=== PATIENT | male | born 1975 | race Caucasian/White ===

== ENCOUNTER 2019-07-07 07:47 | Day surgery (SDC) | payer OTHER ==
--- NOTE | 2019-06-30 11:03 | RAD REPORT ---
EXAM DESCRIPTION: RAD - Chest Pa And Lat (2 Views) - 06/30/2019 10:56 am CLINICAL HISTORY: preop Chest pain. COMPARISON: No comparisons FINDINGS: The lungs are clear. The heart is normal in size. No displaced fractures. IMPRESSION: No acute or concerning finding suspected.
[2019-06-30 11:11] LABS: Absolute Lymphocytes (CBC) 1.2 K/uL (0.7-4.9); Basophils % 2.7 % (0-1.3); Hematocrit 45.6 % (39.6-49.0); Lymphocytes % 17.1 % (15.3-44.8); MPV 9.1 fL (7.6-11.3); RBC Red Blood Cell Count 4.72 M/uL (4.33-5.43)
[2019-06-30 11:33] LABS: Potassium 4.8 mmol/L (3.5-5.1)
--- NOTE | 2019-06-30 12:42 | EKG ---
Test Date: 2019-06-30 Test Time: 10:40:19 Manager Food: VIN MEASUREMENT RESULTS: Intervals: Rate: 82 SC: 116 QRSD: 100 QT: 354 QTc: 413 [place]: P: 77 SC: 116 QRS: 71 T: 63 INTERPRETIVE STATEMENTS: Normal sinus rhythm with sinus arrhythmia Minimal voltage criteria for LVH, may be normal variant Borderline ECG No previous ECG available for comparison Electronically Signed On 06-30-19 12:41:18 ONLINE MERCHANDISING COORDINATOR by Oliver Landry
[2019-07-07] MEDS ORDERED: CEFAZOLIN/SWI 1gm 1 GM/10 ML SYR ONE (08:05)
[2019-07-07] MEDS ORDERED: Ringers Lactate 1,000 ML IV ONE (08:05)
[2019-07-07] MEDS ORDERED: FENTANYL CITR 100 MCG/2 ML ONE (08:27)
[2019-07-07] MEDS ORDERED: LIDOCAINE 2% MPF 5 ML VIAL ONE (08:28)
[2019-07-07] MEDS ORDERED: MIDAZOLAM HCL 2 MG/2 ML INJ ONE (08:28)
[2019-07-07] MEDS ORDERED: propofoL 200 MG/20 ML VIAL IV ONE (08:28)
[2019-07-07] MEDS ORDERED: ONDANSETRON 4 MG/2 ML VIAL ONE (08:29)
[2019-07-07] MEDS ORDERED: BUPIVACAINE 0.5% PF 10 ML VIAL ONE (08:43)
[2019-07-07] MEDS ORDERED: SCOPOLAMINE HYDROBROMIDE PATCH TD ONE ×2 (08:44→09:10)
[2019-07-07] MEDS ORDERED: dexAMETHasone 10 MG/ML VIAL ONE (09:29)
[2019-07-07] MEDS ORDERED: KETOROLAC 30 MG/ML INJ ONE (09:51)
[2019-07-07] MEDS ORDERED: HYDROMORPHONE HCL 1 MG/ML INJ ONE (10:47)
[2019-07-07] MEDS ORDERED: PROMETHAZINE INJ 25 MG/ML AMP ONE (10:47)
[2019-07-07] MEDS ORDERED: LIDOCAINE JELLY 2%- 5 ML TUBE ONE (10:49)
[2019-07-07] MEDS ORDERED: HYDROCODONE/APAP 7.5/325 MG TAB ONE (11:52)
[2019-07-07 12:18] VITALS: BP 117/73; TEMP 98; O2SAT 97
--- NOTE | 2019-07-07 21:13 | OP ---
Date of Procedure: 07/07/2019 Surgeon: Boston Vargas MD Preoperative Diagnosis: Right inguinal hernia. Postoperative Diagnosis: Right inguinal hernia. Procedure: Repair of right inguinal hernia. Estimated Blood Loss: Minimal. Specimen: None. Findings: Direct right inguinal hernia. Anesthesia: General. Complications: None. Disposition: Patient tolerated procedure in stable condition, taken to Recovery in good general cond ition. Description Of Procedure: Patient was brought to the OR and placed in supine position. General anes thesia was begun. The patient was prepped and draped in the sterile fashion. Marcaine 0.5% was infi ltrated in a field block fashion in the right groin. 15-blade was used to make a 4 cm oblique incisi on between the pubic tubercle, the anterior iliac superior spine. Subcutaneous tissue was divided. Everett's fascia identified and divided. Aponeurosis was identified, mobilized inferiorly to expose s helving edge then opened through the external ring. Ilioinguinal nerve identified retracted out of t he field of dissection, cord mobilized at the pubic tubercle and skeletonized. No indirect sac prese nt. There was a moderate size direct inguinal hernia present on the inguinal floor. This was reduce d back into the peritoneal cavity and then a new floor was created by starting at the pubic tubercle. Using 2-0 Prolene running suture to approximate the shelving edge to the conjoined tendon to create a new inguinal floor and a new internal ring, then Marlex mesh plug placed in the internal ring, sec ured with the VersaTack stapler. On-lay mesh placed on the inguinal floor, secured medially to the p ubic tubercle, superiorly to the conjoined tendon inferior to the shelving edge, laterally to each ot her. Then, cord structures and inguinal nerve placed back in anatomic location. Aponeurosis closed with 2-0 Prolene, 3-0 chromic used to reapproximate Everett's fascia. Martha was used to closed skin . Sterile dressing was applied. Patient was awakened and taken to Recovery in good general conditio n. Discharge Note: The patient will go to Day-Surgery, home when stable. Disposition: Home. Condition: Stable. Discharge Instructions: Resume home medications and diet. Activity as tolerated. No heavy lifting. Remove outer dressing in 2 days. Shower. Keep wound clean and dry. Follow up in my office in a [place] [place]. Call for appointment. Tylenol No. 3 one tablet p.o. q.4 p.r.n. pain. Scrotal support, ice pac k as ordered. JEANNINE/FREDDY Voice ID: [id number] Report ID: [id number]
== END 2019-07-07 12:50 | disposition home or self-care (01) ==
LOC: OR 07:47
PROVIDERS: ATTEND Surgery
PROC: 0YU50JZ Supplement Right Inguinal Region with Synthetic Substitute, Open Approach (ICD-10-PCS; principal; 2019-07-07 09:00)
DX: K40.90 Unilateral inguinal hernia, without obstruction or gangrene, not specified as recurrent (principal); Z88.0 Allergy status to penicillin
CPT/HCPCS: 93005; 85025; 80048; 36415; 71046; 49505; J2704; J2550; J2250; J3010; J1100; J1170; J0690; J7120; J2405

== ENCOUNTER 2020-12-05 20:27 | Observation (INO) | payer OTHER ==
--- NOTE | 2020-12-05 21:20 | RAD REPORT ---
EXAM DESCRIPTION: CT - Head Brain Wo Cont - 12/05/2020 9:10 pm CLINICAL HISTORY: Headache COMPARISON: None TECHNIQUE: Computed axial tomography of the head was obtained. IV contrast was not requested. All CT scans are performed using dose optimization technique as appropriate and may include automated exposure control or mA/KV adjustment according to patient size. FINDINGS: An intracranial bleed is not seen . The ventricles are normal in caliber. No extra-axial fluid collection is noted. Prominent soft tissue surrounds the cavernous sinus bilaterally. Moderate opacification ethmoid sinus IMPRESSION: Prominent soft tissue surrounds the cavernous sinus bilaterally. It is recommended that the patient have either a CT scan with IV contrast or MRI with IV contrast to determine if a mass is present. Ethmoid sinusitis
[2020-12-05] MEDS ORDERED: METOCLOPRAMIDE 10 MG/2mL INJ ONE (23:00)
[2020-12-05] MEDS ORDERED: NA CHLORIDE 0.9% 1,000 ML ONE (23:01)
[2020-12-05] MEDS ORDERED: DIPHENHYDRAMINE 50 MG/ML VIAL ONE (23:01)
[2020-12-05] MEDS ORDERED: KETOROLAC 30 MG/ML INJ ONE (23:01)
[2020-12-05 23:10] LABS: Absolute Lymphocytes (CBC) 1.2 K/uL (0.7-4.9); Basophils % 0.2 % (0-1.3); Hematocrit 45.6 % (39.6-49.0); Lymphocytes % 8.7 % (15.3-44.8); MPV 9.2 fL (7.6-11.3); RBC Red Blood Cell Count 4.96 M/uL (4.33-5.43)
[2020-12-05 23:21] LABS: Albumin 4.6 g/dL (3.4-5.0); Bilirubin Direct 0.2 mg/dL (0-0.2); Bilirubin Total 0.7 mg/dL (0.2-1.0); Potassium 4.3 mmol/L (3.5-5.1); Protein, Total 8.6 g/dL (6.4-8.2)
[2020-12-05 23:59] LABS: Blood Morphology Comment NOT SEEN (NOT SEEN); Platelet Estimate ADEQ
[2020-12-06 00:09] LABS: Barbiturates NEGATIVE (NEGATIVE); Benzodiazepines NEGATIVE (NEGATIVE); Cocaine NEGATIVE (NEGATIVE); METHAMPHETAM NEGATIVE (NEGATIVE); Methadone NEGATIVE (NEGATIVE); Opiates NEGATIVE (NEGATIVE); Phencyclidine NEGATIVE (NEGATIVE); THC Cannibis POSITIVE (NEGATIVE)
[2020-12-06] MEDS ORDERED: LORAZEPAM 0.5 MG TABLET ONE (03:04)
--- NOTE | 2020-12-06 03:31 | EDPHYS ---
Physician Documentation [facility] Name: Brody Fernando Age: 45 yrs Sex: Male : 1975 Arrival Date: 12/05/2020 Time: 20:28 Bed 6 Private MD: ED Physician Mary Montelongo HPI: 12/05 22:37 This 45 yrs old Male presents to ER via Wheelchair with complaints of ma2 Headache, Worst Ever, Light Sensitivity, Vomiting. 22:37 This 45 yrs old Male presents to ER via Wheelchair with complaints of ma2 Headache, Light Sensitivity, Vomiting. 22:37 The patient complains of pain to the forehead and left base of the skull. Onset: The ma2 symptoms/episode began/occurred gradually, 2 day(s) ago. Associated signs and symptoms: Pertinent negatives: fever, neck stiffness, Photophobia weakness. Severity of symptoms: At its worst the pain was moderate, in the emergency department the pain is unchanged. The patient has not experienced similar symptoms in the past. patient has occipital and frontal headache gradual, he states it is 8/10, + vomiting. . Historical: - Allergies: 21:00 PENICILLINS; vg1 - PMHx: 21:00 None; vg1 - Immunization history:: Adult Immunizations up to date, Client reports receiving the 2nd dose of the Covid vaccine, Date received: November 17, 2020. - Social history:: Smoking status: Patient/guardian denies using tobacco. - Family history:: not pertinent. ROS: 22:38 Constitutional: Negative for fever, chills, and weight loss. ma2 22:38 All other systems are negative. Exam: 22:38 Constitutional: This is a well developed, well nourished patient who is awake, alert, ma2 and in no acute distress. Head/Face: Normocephalic, atraumatic. Eyes: Pupils equal round and reactive to light, extra-ocular motions intact. Lids and lashes normal. Conjunctiva and sclera are non-icteric and not injected. Cornea within normal limits. Periorbital areas with no swelling, redness, or edema. ENT: Nares patent. No nasal discharge, no septal abnormalities noted. Tympanic membranes are normal and external auditory canals are clear. Oropharynx with no redness, swelling, or masses, exudates, or evidence of obstruction, uvula midline. Mucous membranes moist. Neck: Trachea midline, no thyromegaly or masses palpated, and no cervical lymphadenopathy. Supple, full range of motion without nuchal rigidity, or vertebral point tenderness. No Meningismus. Chest/axilla: Normal chest wall appearance and motion. Nontender with no deformity. No lesions are appreciated. Cardiovascular: Regular rate and rhythm with a normal S1 and S2. No gallops, murmurs, or rubs. Normal PMI, no JVD. No pulse deficits. Respiratory: Lungs have equal breath sounds bilaterally, clear to auscultation and percussion. No rales, rhonchi or wheezes noted. No increased work of breathing, no retractions or nasal flaring. Abdomen/GI: Soft, non-tender, with normal bowel sounds. No distension or tympany. No guarding or rebound. No evidence of tenderness throughout. Back: No spinal tenderness. No costovertebral tenderness. Full range of motion. Skin: Warm, dry with normal turgor. Normal color with no rashes, no lesions, and no evidence of cellulitis. MS/ Extremity: Pulses equal, no cyanosis. Neurovascular intact. Full, normal range of motion. Neuro: Awake and alert, GCS 15, oriented to person, place, time, and situation. Cranial nerves II-XII grossly intact. Motor strength 5/5 in all extremities. Sensory grossly intact. Cerebellar exam normal. Normal gait. Psych: Awake, alert, with orientation to person, place and time. Behavior, mood, and affect are within normal limits. Vital Signs: 20:57 BP 138 / 88; Pulse 76; Resp 16; Temp 97.8(O); Pulse Ox 100% ; Weight 66.68 kg; Height 5 vg1 ft. 7 in. (170.18 cm); Pain 02/19; 12/06 00:12 BP 104 / 75; Pulse 74; Resp 16; Pulse Ox 99% on R/A; 8 01:15 BP 108 / 64; Pulse 96; Resp 16; Pulse Ox 97% on R/A; 02:46 BP 126 / 78; Pulse 91; Resp 16; Pulse Ox 97% on R/A; 03:38 BP 117 / 78; Pulse 92; Resp 16; Pulse Ox 100% on R/A; 8 12/05 20:57 Body Mass Index 23.02 (66.68 kg, 170.18 cm) vg1 [place] Coma Score: 03:23 Eye Response: spontaneous(4). Verbal Response: oriented(5). Motor Response: obeys ma2 commands(6). Total: 15. MDM: 12/05 22:30 Patient medically screened. ma2 22:39 ED course: patient does not have neck rigidity or Brudzinski sign, he has no neuro ma2 deficit . 12/06 03:23 Differential diagnosis: otitis, uremia, headache, vs migraine. Data reviewed: vital ma2 signs, nurses notes. Counseling: I had a detailed discussion with the patient and/or guardian regarding: the historical points, exam findings, and any diagnostic results supporting the discharge/admit diagnosis, the presence of at least one elevated blood pressure reading (>120/80) during this emergency department visit, the need for outpatient follow up. Response to treatment: the patient's symptoms have markedly improved after treatment. ED course: patient likely have migraine vs tension headache. although there is mild elevation in wbc, meningitis is unlikely as patient he does not have meningism on exam, and all his symptoms has resolved.. he is walking around er and does not look ill or in distress and he states headache has resolved.. also SAH is unlikely as headache is not sudden or pounding. risk of doing LP at this time out way benefit. CTH w IV contrast shows ?cavernous sinus thickening. given symptoms resolution and no deficit on exam will not start anticoagulation until diagnosis is confirmed. patient need neuro evaluation and MRI, discussed with dr. Luna and agree to see him . 12/05 22:33 Order name: Basic Metabolic Panel; Complete Time: 23:42 [facility] 12/05 22:33 Order name: CBC with Diff; Complete Time: 00:23 [facility] 12/05 22:33 Order name: Hepatic Function; Complete Time: 23:42 [facility] 12/05 22:33 Order name: Lipase; Complete Time: 23:42 [facility] 12/05 22:33 Order name: Blood Culture Adult (2) [facility] 12/05 22:33 Order name: UDS; Complete Time: 00:23 [facility] 12/05 20:53 Order name: CT Head Brain wo Cont; Complete Time: 22:30 [facility] 12/05 22:33 Order name: MRI - Brain W/Wo Cont [facility] 12/05 23:29 Order name: Manual Differential; Complete Time: 00:23 [facility] 12/06 00:23 Order name: CT Head Brain w Cont [facility] 12/06 02:21 Order name: SARS-COV-2 RT PCR; Complete Time: 02:21 [facility] 12/05 22:33 Order name: IV Saline Lock; Complete Time: 22:50 [facility] 12/05 22:33 Order name: Labs collected and sent; Complete Time: 22:51 [facility] Administered Medications: 12/05 22:50 Drug: NS 0.9% 1000 ml Route: IV; Rate: 1 bolus; Site: left antecubital; 8 23:57 Follow up: IV Status: Completed infusion [facility] 22:50 Drug: TORadol (ketorolac) 30 mg Route: IVP; Site: left antecubital; 8 23:57 Follow up: Response: No adverse reaction; Pain is decreased 8 22:50 Drug: Reglan (metoCLOPramide) 20 mg Route: IVP; Site: left antecubital; 8 23:56 Follow up: Response: No adverse reaction; Pain is decreased 8 22:50 Drug: Benadryl (diphenhydrAMINE) 50 mg Route: IVP; Site: left antecubital; 8 23:56 Follow up: Response: No adverse reaction; Pain is decreased [facility] 12/06 02:45 Drug: Ativan (LORazepam) 0.5 mg Route: PO; 8 03:17 Follow up: Response: No adverse reaction [facility] Disposition: 12/06/20 03:30 Hospitalization ordered by Efren Menchaca for Observation. Preliminary diagnosis is Headache. - Bed requested for Telemetry/MedSurg (observation). - Status is Observation. ea - Condition is Stable. - Problem is new. - Symptoms are unchanged. Signatures: Dispatcher [employer] Roshni Diez, RN Jose Reno FNP-C RESTA[employer]ANT AREA DIRECTOR-Cla1 Melodie Nam RN RN ea Alzahri, Mohammad, MD MD ma2 Yaneli Peralta RN RN vg1 Dre Hand RN RN jm8 Corrections: (The following items were deleted from the chart) 01:33 05/26 23:43 CORONAVIRUS+MR.LAB.BRZ ordered. EDMS EDMS 12/06 03:43 03:30 Hospitalization Ordered by Efren Menchaca MD for Observation. Preliminary dw diagnosis is Headache. Bed requested for Telemetry/MedSurg (observation). Status is Observation. Condition is Stable. Problem is new. Symptoms are unchanged. ma2 04:48 03:43 12/06/2020 03:30 Hospitalization Ordered by Efren Menchaca MD for Observation. ea Preliminary diagnosis is Headache. Bed requested for Telemetry/MedSurg (observation). Status is Observation. Condition is Stable. Problem is new. Symptoms are unchanged. dw
--- NOTE | 2020-12-06 03:31 | ER ---
Nurse's Notes [facility] Name: Brody Fernando Age: 45 yrs Sex: Male : 1975 Arrival Date: 12/05/2020 Time: 20:28 Bed 6 Private MD: Diagnosis: Headache Presentation: 12/05 20:57 Chief complaint: Patient states: Severe Headache, NV, chills, photophobia began today vg1 around 1300. Pt states the colors around him are brightPt stated received the second dose of Pfizer on November 17. Coronavirus screen: Client denies travel out of the [place] in the last 14 days. Initial Sepsis Screen: Does the patient meet any 2 criteria? No. Patient's initial sepsis screen is negative. Does the patient have a suspected source of infection? No. Patient's initial sepsis screen is negative. Risk Assessment: Do you want to hurt yourself or someone else? Patient reports no desire to harm self or others. Onset of symptoms was December 05, 2020. 20:57 Method Of Arrival: Wheelchair vg1 20:57 Acuity: NASEEM 3 vg1 21:00 Ebola Screen: Patient negative for fever greater than or equal to 101.5 degrees vg1 Fahrenheit, and additional compatible Ebola Virus Disease symptoms. Triage Assessment: 21:00 Headache History: Denies prior headaches. General: Appears in no apparent distress. vg1 uncomfortable, Behavior is calm, cooperative. Pain: Complains of pain in head Pain currently is 8 out of 10 on a pain scale. Pain began around 1300 Also complains of nausea, photophobia. Neuro: Level of Consciousness is awake, alert, obeys commands, Oriented to person, place, time, situation. Historical: - Allergies: 21:00 PENICILLINS; vg1 - PMHx: 21:00 None; vg1 - Immunization history:: Adult Immunizations up to date, Client reports receiving the 2nd dose of the Covid vaccine, Date received: November 17, 2020. - Social history:: Smoking status: Patient/guardian denies using tobacco. - Family history:: not pertinent. Screenin:54 Abuse screen: Denies threats or abuse. Denies injuries from another. Nutritional jm8 screening: No deficits noted. Tuberculosis screening: No symptoms or risk factors identified. Fall Risk None identified. Assessment: 22:51 General: Appears in no apparent distress. uncomfortable, Behavior is calm, cooperative, jm8 appropriate for age. Pain: Complains of pain in left base of the skull and forehead Pain currently is 3 out of 10 on a pain scale. Quality of pain is described as pressure, Pain began 8 hours ago. Neuro: Level of Consciousness is awake, alert, obeys commands, Oriented to person, place, time, Reports headache frontal area, photophobia neck stiffness. Cardiovascular: No deficits noted. Respiratory: Airway is patent Trachea midline Respiratory effort is even, unlabored, Respiratory pattern is regular, symmetrical. GI: Reports lower abdominal pain, upper abdominal pain, nausea, vomiting. GI: Abdomen is flat. : No deficits noted. No signs and/or symptoms were reported regarding the genitourinary system. EENT: No deficits noted. No signs and/or symptoms were reported regarding the EENT system. Derm: No deficits noted. No signs and/or symptoms reported regarding the dermatologic system. Skin is intact, is healthy with good turgor, Skin is dry, Skin is pink, warm \T\ dry. normal, Skin temperature is warm. 12/06 01:00 Reassessment: Patient appears in no apparent distress at this time. No changes from jm8 previously documented assessment. Patient is alert, oriented x 3, equal unlabored respirations, skin warm/dry/pink. Patient denies pain at this time. Patient states feeling better. Patient states symptoms have improved. 03:18 Reassessment: Patient appears in no apparent distress at this time. No changes from jm8 previously documented assessment. Patient is alert, oriented x 3, equal unlabored respirations, skin warm/dry/pink. 04:48 Reassessment: Patient and/or family updated on plan of care and expected duration. Pain ea level reassessed. Patient is alert, oriented x 3, equal unlabored respirations, skin warm/dry/pink. Pt admitted to fourth floor. Pt left ED via wheelchair per technical project coordinator. Pt tolerating well. Vital Signs: 12/05 20:57 BP 138 / 88; Pulse 76; Resp 16; Temp 97.8(O); Pulse Ox 100% ; Weight 66.68 kg; Height 5 vg1 ft. 7 in. (170.18 cm); Pain 8/10; 12/06 00:12 BP 104 / 75; Pulse 74; Resp 16; Pulse Ox 99% on R/A; jm8 01:15 BP 108 / 64; Pulse 96; Resp 16; Pulse Ox 97% on R/A; 8 02:46 BP 126 / 78; Pulse 91; Resp 16; Pulse Ox 97% on R/A; 8 03:38 BP 117 / 78; Pulse 92; Resp 16; Pulse Ox 100% on R/A; 8 12/05 20:57 Body Mass Index 23.02 (66.68 kg, 170.18 cm) vg1 [place] Coma Score: 03:23 Eye Response: spontaneous(4). Verbal Response: oriented(5). Motor Response: obeys ma2 commands(6). Total: 15. ED Course: 12/05 20:28 Patient arrived in ED. bp1 21:00 Triage completed. vg1 21:00 Arm band placed on. vg1 21:08 CT Head Brain wo Cont In Process Unspecified. EDMS 22:30 Mary Montelongo MD is Attending Physician. ma2 22:46 Inserted saline lock: 20 gauge in left antecubital area, using aseptic technique. Blood ds4 collected. 22:55 Patient has correct armband on for positive identification. Bed in low position. Call 8 light in reach. Side rails up X2. Adult w/ patient. 12/06 01:12 CT Head Brain w Cont In Process Unspecified. EDMS 03:30 Efren Menchaca MD is Hospitalizing Provider. ma2 03:57 No provider procedures requiring assistance completed. Patient admitted, IV remains in ea place. Administered Medications: 12/05 22:50 Drug: NS 0.9% 1000 ml Route: IV; Rate: 1 bolus; Site: left antecubital; jm8 23:57 Follow up: IV Status: Completed infusion 8 22:50 Drug: TORadol (ketorolac) 30 mg Route: IVP; Site: left antecubital; jm8 23:57 Follow up: Response: No adverse reaction; Pain is decreased jm8 22:50 Drug: Reglan (metoCLOPramide) 20 mg Route: IVP; Site: left antecubital; jm8 23:56 Follow up: Response: No adverse reaction; Pain is decreased 8 22:50 Drug: Benadryl (diphenhydrAMINE) 50 mg Route: IVP; Site: left antecubital; jm8 23:56 Follow up: Response: No adverse reaction; Pain is decreased rashanw8 12/06 02:45 Drug: Ativan (LORazepam) 0.5 mg Route: PO; jm8 03:17 Follow up: Response: No adverse reaction jm8 Outcome: 03:30 Decision to Hospitalize by Provider. fl2 03:57 Condition: stable ea 03:57 Instructed on the need for admit, Demonstrated understanding of instructions. 04:47 Admitted to Med/surg accompanied by tech, via wheelchair, room 412, with chart, Report ea called to Receiving nurse on fourth floor 04:48 Patient left the ED. ea Signatures: Dispatcher [employer] EDMS Tima Valdez ds4 Melodie Nam, RN RN Mary Pineda MD MD ma2 Yaneli Peralta, RN RN 1 Amina Britton Joseph, RN RN jm8 Corrections: (The following items were deleted from the chart) 12/05 21:03 20:57 Chief complaint: Patient states: Severe Headache, NV, chills, photophobia began vg1 today around 1300. Pt stated received the second dose of Pfizer on November 17. vg1 12/06 02:47 02:46 BP 126 / 78; Pulse 63bpm; Resp 16bpm; Pulse Ox 97% RA; Camilla Camilla
--- NOTE | 2020-12-06 04:02 | P.HP ---
Certification for Inpatient Patient admitted to: Observation With expected LOS: <2 Midnights Patient will require the following post-hospital care: None Practitioner: I am a practitioner with admitting privileges, knowledge of patient current condition, hospital course, and medical plan of care. Services: Services provided to patient in accordance with Admission requirements found in Title 42 Section 412.3 of the Code of Federal Regulations Patient History Date of Service: 12/06/20 Reason for admission: Headache History of Present Illness: 45-year-old male with history of PTSD presented the emergency department for headache, photosensitivity. Patient without history of previous headaches, reports that headache came on gradually over the course of the last 2 days. Patient was evaluated in the emergency department, CT head without contrast negative for any acute findings, labs significant for white blood cell count 13.5. Patient was given Reglan, Benadryl, Toradol, normal saline and his headache completely resolved along with his photosensitivity. CT angiogram was performed which demonstrated mild symmetric prominence of the lateral margins of the cavernous sinuses is present without significant heterogenicity of enhancement. These findings likely represent normal variation as there is no secondary support findings. Neurology was consulted and recommended MRI/MRA evaluation prior to discharge. At time of my evaluation patient is awake, alert, oriented x4, headache has completely resolved, patient with negative Kernig, Brudzinski, jolt accentuation tests, no longer photosensitive, no nuchal rigidity noted. ED provider wishes to admit under observation for completion of the MRI/MRA. Allergies Penicillins Allergy (Verified 06/30/19 10:32) Hives Home Medications: L.acidoph,Paracasei, B.lactis [Probiotic] 1 each PO M,W,F 06/30/19 Methylphenidate HCl [Ritalin] 20 mg PO DAILY 06/30/19 Ranitidine HCl [Acid Shell Shop Supervisor] 300 mg PO DAILY 06/30/19 - Past Medical/Surgical History -: PTSD -: Hernia repair Psychosocial/ Personal History: Unemployed, lives with his mother - Family History Family History: Reviewed- Non-Contributory - Social History Smoking Status: Former smoker Alcohol use: No CD- Drugs: No Caffeine use: Yes Place of Residence: Home Review of Systems 10-point ROS is otherwise unremarkable Neurological: As per HPI Physical Examination - Physical Exam General: Alert, In no apparent distress HEENT: Atraumatic, PERRLA, Mucous membr. moist/pink, EOMI, Sclerae nonicteric Neck: Supple, 2+ carotid pulse no bruit, No LAD, Without JVD or thyroid abnormality Respiratory: Clear to auscultation bilaterally, Normal air movement Cardiovascular: Regular rate/rhythm, Normal S1 S2 Gastrointestinal: Normal bowel sounds, No tenderness Musculoskeletal: No tenderness Integumentary: No rashes Neurological: Normal gait, Normal speech, Normal strength at 5/5 x4 extr, Normal tone, Normal affect Lymphatics: No axilla or inguinal lymphadenopathy - Studies Laboratory Data (last 24 hrs) 12/05/20 22:46: WBC 13.50 H, Hgb 15.5, Hct 45.6, Plt Count 227 12/05/20 22:46: Sodium 139, Potassium 4.3, BUN 19 H, Creatinine 0.92, Glucose 90, Total Bilirubin 0.7, AST 23, ALT 39, Alkaline Phosphatase 86, Lipase 142 Assessment and Plan - Plan Assessment Headache, photophobia, vomiting-resolved Plan Headache, photophobia, vomiting-resolved: Patient feeling much better at this time, CT demonstrates mild symmetric prominence of the lateral margins of the cavernous sinuses, neurology recommends MRI/MRA which is ordered and pending. Mild leukocytosis is noted, will labs this morning. Patient without nuchal rigidity, negative Kernig, Brudzinski, jolt accentuation tests, headache completely resolved, photophobia resolved. Neurology consulted, DVT prophylaxis Lovenox 40 mg subcutaneous once daily. Discharge Plan: Home Plan to discharge in: 24 Hours - Advance Directives Does patient have a Living Will: No Does patient have a Durable POA for Healthcare: No - Code Status/Comfort Care Code Status Assessed: Yes (Full code) Critical Care: No Time Spent Managing Pts Care (In Minutes): 55
[2020-12-06] MEDS ORDERED: HYDROCODONE/APAP 5/325 MG TAB PO PRN (05:02)
[2020-12-06] MEDS ORDERED: ONDANSETRON 4 MG/2 ML VIAL IV PRN (05:02)
[2020-12-06 05:50] VITALS: BMI 23.0
[2020-12-06 08:41] LABS: Basophils % 1.2 % (0-1.3); Hematocrit 39.9 % (39.6-49.0); Lymphocytes % 23.6 % (15.3-44.8); MPV 8.8 fL (7.6-11.3); RBC Red Blood Cell Count 4.32 M/uL (4.33-5.43)
[2020-12-06] MEDS ORDERED: ENOXAPARIN 40 MG/0.4 ML SQ SCH (09:00)
--- NOTE | 2020-12-06 10:41 | RAD REPORT ---
EXAM DESCRIPTION: MRI - Brain W/Wo Cont - 12/06/2020 10:19 am CLINICAL HISTORY: HEADACHE Headache, drowsiness COMPARISON: Head Brain W Cont dated 12/06/2020 TECHNIQUE: Multi-sequence, multiplanar MR imaging of the brain was performed with contrast. FINDINGS: No intracranial hemorrhage, hydrocephalus, or extra-axial fluid collection.Small T2 and FL AIR hyperintensities in the subcortical white matter bilaterally are nonspecific. No edema or shift o f midline structures. No intracranial mass. DWI is negative for acute CVA. The midline structures are normally formed. Mild mucoperiosteal thickening is present involving the e thmoid air cells anteriorly. Post-contrast images show no abnormal enhancement to suggest tumor or infection. IMPRESSION: Mild nonspecific T2 and FLAIR hyperintensities in the subcortical white matter. Recommen d followup MR imaging of the brain in 3-6 months for continued surveillance. No pathologic post-contrast enhancement suspected.Negative for CVA.
--- NOTE | 2020-12-06 10:54 | RAD REPORT ---
EXAM DESCRIPTION: CT Head COMPARISON: CT head December 05, 2020 CLINICAL HISTORY: [facility] MAIN PAIN TECHNIQUE: Axial images were obtained from skull base to vertex with intravenous contrast. Images viewed on bone and brain windows. Multiplanar reformats were performed. Automated exposure control was utilized on this examination as a dose lowering technique. FINDINGS: Brain parenchyma, ventricles, dura, meninges, and extra-axial spaces: Ventricles and sulci are normal. No abnormal attenuation of brain parenchyma is present. No acute intracranial hemor rhage. There is mild prominence of the lateral margins of the cavernous sinuses. Vascular structures: No hyperdense arteries or veins. Calvarium, mastoid air cells, paranasal sinuses and orbits: The calvarium is normal. The mastoid air cells are clear. Mild bilateral ethmoid sinus mucosal thickening. Orbital structures are unremarkable . IMPRESSION: Mild symmetric prominence of the lateral margins of the cavernous sinuses is present wit hout significant heterogeneity of enhancement. These findings likely reflect normal variation as ther e are no secondary supportive findings. If there is clinical concern for cavernous sinus thrombosis, consider further evaluation with MRI of the brain with and without contrast. Electronically signed by: Carlos Alberto Sanchez MD 12/06/2020 1:36 AM CDT Due to temporary technical issues with the PACS/Fluency reporting system, reports are being signed by the in house radiologist without review as a courtesy to ensure prompt reporting. The interpreting r adiologist is fully responsible for the content of the report.
[2020-12-06 10:58] VITALS: O2SAT 97
[2020-12-06 12:11] VITALS: BP 107/61; TEMP 97.9
--- NOTE | 2020-12-06 17:16 | P.DS ---
Admission Date: 12/06/20 Discharge Date: 12/06/20 Disposition: ROUTINE DISCHARGE Discharge Condition: GOOD Reason for Admission: Headache Procedures: CT Head (12/05): Prominent soft tissue surrounds the cavernous sinus bilaterally. It is recommended that the patient have either a CT scan with IV contrast or MRI with IV contrast to determine if a mass is present. Ethmoid sinusitis CT Head (12/06): Mild symmetric prominence of the lateral margins of the cavernous sinuses is present without significant heterogeneity of enhancement. These findings likely reflect normal variation as there are no secondary supportive findings. If there is clinical concern for cavernous sinus thrombosis, consider further evaluation with MRI of the brain with and without contrast. MRI Brain (12/06): FINDINGS: No intracranial hemorrhage, hydrocephalus, or extra-axial fluid collection.Small T2 and FLAIR hyperintensities in the subcortical white matter bilaterally are nonspecific. No edema or shift of midline structures. No intracranial mass. DWI is negative for acute CVA. The midline structures are normally formed. Mild mucoperiosteal thickening is present involving the ethmoid air cells anteriorly. Post-contrast images show no abnormal enhancement to suggest tumor or infection. Mild nonspecific T2 and FLAIR hyperintensities in the subcortical white matter. Recommend followup MR imaging of the brain in 3-6 months for continued surveillance. No pathologic post-contrast enhancement suspected.Negative for CVA. Problem List Headache, likely migraine Chronic sinusitis Brief History of Present Illness: 45-year-old male with history of PTSD presented the emergency department for headache, photosensitivity. Patient without history of previous headaches, reports that headache came on gradually over the course of the last 2 days. Patient was evaluated in the emergency department, CT head without contrast negative for any acute findings, labs significant for white blood cell count 13.5. Patient was given Reglan, Benadryl, Toradol, normal saline and his headache completely resolved along with his photosensitivity. CT angiogram was performed which demonstrated mild symmetric prominence of the lateral margins of the cavernous sinuses is present without significant heterogenicity of enhancement. These findings likely represent normal variation as there is no secondary support findings. Neurology was consulted and recommended MRI/MRA evaluation prior to discharge. At time of my evaluation patient is awake, alert, oriented x4, headache has completely resolved, patient with negative Kernig, Brudzinski, jolt accentuation tests, no longer photosensitive, no nuchal rigidity noted. ED provider wishes to admit under observation for completion of the MRI/MRA. Hospital Course: Patient had resolution of symptoms prior to admission. CT brain with some mild thickening as noted above. Neurology was consulted and recommended MRI. MRI with nonspecific findings. Patient was feeling well, no longer having any symptoms / pain. He was discharged home. He did report some symptoms of chronic sinusitis and h/o "sinus surgery up the nose". Recommended flonase daily. His symptoms seem more consistent with migraine. Follow up with PCP in 3-5 days. Follow up with Neurology in ~1 month. Vital Signs/Physical Exam: Temp Pulse Resp BP Pulse Ox 97.9 F 87 16 107/61 98 12/06/20 12:00 12/06/20 12:00 12/06/20 12:00 12/06/20 12:00 12/06/20 12:00 Laboratory Data at Discharge: WBC 8.60 K/uL (4.3-10.9) D 12/06/20 08:06 Hgb 13.6 g/dL (13.6-17.9) 12/06/20 08:06 Hct 39.9 % (39.6-49.0) 12/06/20 08:06 Plt Count 204 K/uL (152-406) 12/06/20 08:06 Sodium 139 mmol/L (136-145) 12/05/20 22:46 Potassium 4.3 mmol/L (3.5-5.1) 12/05/20 22:46 BUN 19 mg/dL (7-18) H 12/05/20 22:46 Creatinine 0.92 mg/dL (0.55-1.3) 12/05/20 22:46 Glucose 90 mg/dL (74-106) 12/05/20 22:46 Total Bilirubin 0.7 mg/dL (0.2-1.0) 12/05/20 22:46 AST 23 U/L (15-37) 12/05/20 22:46 ALT 39 U/L (12-78) 12/05/20 22:46 Alkaline Phosphatase 86 U/L (45-117) 12/05/20 22:46 Lipase 142 U/L (73-393) 12/05/20 22:46 Home Medications: Famotidine [Pepcid AC] 1 tab PO PRN 12/06/20 Multivit,Ther Iron,Ca,FA & Min [Centrum Tablet*] 1 tab PO DAILY 12/06/20 Psyllium Husk [Metamucil] 2 tab PO DAILY 12/06/20 Physician Discharge Instructions: Your headache was likely a migraine. Imaging of your brain (CT and MRI) was nonspecific, and did not show any tumor/bleed/infection/stroke. There was mild thickening of an area in your ethmoid sinus which may indicate chronic sinusitis (inflammation, not infection). Recommend daily flonase and follow up with PCP. MRI did note: Mild nonspecific T2 and FLAIR hyperintensities in the subcortical white matter. Recommend followup MR imaging of the brain in 3-6 months for continued surveillance. This finding is very nonspecific and don't seem to have any clinical signifi cance at this time. Follow up with Neurology - Dr. Luna in ~1 month. Diet: Regular Activity: Ad sara Followup: Willie Luna MD [ASSOCIATE-ACTIVE - CAN ADMIT] - (Call to schedule appointment) Unknown,U [Primary Care Provider] - (call to schedule appointment) Time spent managing pt's care (in minutes): 35
== END 2020-12-06 14:11 | disposition home or self-care (01) ==
LOC: ER 20:27 → ERHOLD 12-06 03:44 → 4TH 12-06 03:47
PROVIDERS: ADMIT Hospitalist; ATTEND Hospitalist
DX: R51.9 Headache, unspecified (principal); J32.2 Chronic ethmoidal sinusitis; H53.149 Visual discomfort, unspecified; R11.10 Vomiting, unspecified; D72.829 Elevated white blood cell count, unspecified; F43.10 Post-traumatic stress disorder, unspecified; Z20.822 Contact with and (suspected) exposure to COVID-19; Z87.891 Personal history of nicotine dependence; Z88.0 Allergy status to penicillin
CPT/HCPCS: 96361; 87040 ×2; 85025 ×2; 80048; 36415; 80076; 80307 ×8; 83690; 84145; 70460; 70450; 70553; 96375; 96374; 99285; U0003; Q9967; A9577; J2765; J1200; J1650; J7030

== ENCOUNTER 2024-07-11 14:40 | Inpatient (IN) | payer OTHER ==
[2024-07-11] MEDS ORDERED: TICAGRELOR 90 MG TABLET PO ONE ×2 (15:14→15:22)
[2024-07-11] MEDS ORDERED: HEPARIN 5000 UNIT/ML 1 ML VIAL ONE ×2 (15:14→15:22)
[2024-07-11] MEDS ORDERED: HEPARIN/D5W 25,000 UNIT/500 ML BAG IV ONE (15:14)
[2024-07-11 15:18] LABS: Absolute Basophils 0.2 K/uL (0-0.5); Absolute Eosinophils 0.9 K/uL (0-0.5); Absolute Lymphocytes (CBC) 3.2 K/uL (0.7-4.9); Absolute Neutrophil 7.5 K/uL (1.8-8.0); Basophils % 1.3 % (0-1.3); Eosinophils % 6.8 % (0-4.4); Hematocrit 50.3 % (39.6-49.0); Hemoglobin 16.3 g/dL (13.6-17.9); Lymphocytes % 25.1 % (15.3-44.8); MCH 30.7 pg (27.0-35.0); MCHC 32.3 g/dL (32.0-36.0); MPV 9.6 fL (7.6-11.3); Monocytes % 7.7 % (3.3-12.3); Neutrophils % 59.1 % (41.7-73.7); Platelets 272 thou/uL (152-406); RBC Red Blood Cell Count 5.29 M/uL (4.33-5.43); Red Cell Distribution Width 13.7 % (12.1-15.2)
[2024-07-11 15:21] LABS: PT Prothrombin Time 10.2 SECONDS (9.4-12.5); Protime INR 0.91
[2024-07-11] MEDS ORDERED: LIDOCAINE 1% 20 ML MDV ONE (15:21)
[2024-07-11] MEDS ORDERED: HEPARIN 10,000 UNIT/10 ML VIAL IV ONE (15:21)
[2024-07-11] MEDS ORDERED: CLOPIDOGREL 75 MG TABLET ONE (15:21)
[2024-07-11] MEDS ORDERED: ATROPINE SULF 1 MG/10 ML SYR IV ONE (15:21)
[2024-07-11] MEDS ORDERED: MIDAZOLAM HCL 2 MG/2 ML INJ ONE ×2 (15:21→16:12)
[2024-07-11] MEDS ORDERED: HEPA 1000U/500MLS 2,000 UNIT/1,000 ML BAG IV ONE (15:21)
[2024-07-11] MEDS ORDERED: FENTANYL CITR 100 MCG/2 ML ONE ×2 (15:22→16:13)
[2024-07-11] MEDS ORDERED: ASPIRIN 325 MG TAB ONE (15:22)
[2024-07-11] MEDS ORDERED: NA CHLORIDE 0.9% 500 ML ONE (15:23)
[2024-07-11 15:36] LABS: Troponin High Sensitivity 163.9 pg/mL (<58.9)
--- NOTE | 2024-07-11 15:39 | ER ---
Nurse's Notes [facility] Name: Brody Fernando Age: 48 yrs Sex: Male : 1975 Arrival Date: 07/11/2024 Time: 14:40 Bed 3 Private MD: Diagnosis: ST elevation (STEMI) myocardial infarction involving other sites Presentation: 07/11 15:05 Chief complaint: Patient states: CP started at 1400, constant. Coronavirus screen: At [facility] this time, the client does not indicate any symptoms associated with coronavirus-19. Ebola Screen: No symptoms or risks identified at this time. Initial Sepsis Screen: Does the patient meet any 2 criteria? No. Patient's initial sepsis screen is negative. Does the patient have a suspected source of infection? No. Patient's initial sepsis screen is negative. Risk Assessment: Do you want to hurt yourself or someone else? Patient reports no desire to harm self or others. Onset of symptoms was July 11, 2024 at 14:00. 15:05 Method Of Arrival: Ambulatory [facility] 15:05 Acuity: NASEEM 1 jl Historical: - Allergies: 15:06 PENICILLINS; jl7 - PMHx: 15:06 None; jl7 - Immunization history:: Adult Immunizations unknown. - Infectious Disease History:: Denies. - Social history:: Smoking status: Patient/guardian denies using tobacco. - Family history:: not pertinent. - Hospitalizations: : No recent hospitalization is reported. Vital Signs: 15:05 Pulse 112; Resp 23; Temp 97.1; Pulse Ox 100% ; jl7 15:08 Weight 76.2 kg; jl7 15:08 BP 143 / 105; jl7 ED Course: 14:40 Patient arrived in ED. ra3 14:59 Toi Menchaca MD is Attending Physician. rn 15:05 Inserted saline lock: 18 gauge in right antecubital area, using aseptic technique. hb Blood collected. Flushed with 10 mL NS. 15:06 Triage completed. jl7 15:06 Arm band placed on right wrist. EKG completed in triage. Results shown to MD. jl7 15:24 Inserted saline lock: 20 gauge in left antecubital area, using aseptic technique. hb ,using aseptic technique. US GUIDED. 15:32 No provider procedures requiring assistance completed. Patient admitted, IV remains in ss place. 15:38 Dre Mendenhall is Hospitalizing Provider. rn Administered Medications: 15:18 Drug: Brilinta - Ticagrelor PO 180 mg PO once; loading dose Route: PO; ss 15:18 Drug: Heparin ([place]-Bolus with thrombolytic) - HEParin IVP 60 units/kg IVP once; Max 4000 ss units {Co-Signature: antionette (Sharon Martin RN).} {Note: 4000 units.} Route: IVP; Site: right antecubital; 15:18 Drug: Heparin ([place] Drip) 12 units/kg/[place] - ([place] [address] units, D5W IV 500 ml) IV at ss calculated rate Per protocol; Max initial rate 1000 units/hr {Co-Signature: hb (Sharon Martin RN).} {Note: 900 units/hr.} Route: IV; Rate: calculated rate; Site: right antecubital; Outcome: 15:28 critical ss 15:28 Instructed on the need for admit, 15:28 Admitted to [employer] accompanied by nurse, family with patient, via stretcher, on ss monitor, with chart, Report called to RHONDA Araiza 15:39 Decision to Hospitalize by Provider. rn 15:49 Patient left the ED. jl7 Signatures: Toi Menchaca MD MD rn Blanchard, Shelby, RN RN Sharon Martin RN RN hb Leal, Jahala, RN RN jl7 Alva, Ruby ra Sharon Martin RN Corrections: (The following items were deleted from the chart) 15:06 15:06 PSHx: None; jlDesire jl7
--- NOTE | 2024-07-11 15:40 | EDPHYS ---
Physician Documentation [facility] Name: Brody Fernando Age: 48 yrs Sex: Male : 1975 Arrival Date: 07/11/2024 Time: 14:40 Bed 3 Private MD: ED Physician Toi Menchaca HPI: 07/11 15:18 This 48 yrs old Male presents to ER via Ambulatory with complaints of Breathing rn Difficulty. 15:18 The patient or guardian reports chest pain that is located primarily in the substernal rn area. Onset: 1 hour(s) ago. The pain radiates to both shoulders. Associated signs and symptoms: Pertinent positives: diaphoresis, shortness of breath. The chest pain is described as a heaviness, a pressure. Duration: The patient or guardian reports a single episode, that is still ongoing. Severity of pain: At its worst the pain was moderate in the emergency department the pain is unchanged. The patient has not experienced similar symptoms in the past. Patient reports 1 hour, sudden onset chest pain, substernal, radiates to both shoulders, associated with shortness of breath and diaphoresis. Began while mowing yard. Grandfather of [place] at age of 42. No trauma. No recent illness. No ripping or tearing chest pain. No abdominal pain. No focal weakness or numbness of extremities.. Historical: - Allergies: 15:06 PENICILLINS; jl7 - PMHx: 15:06 None; jl7 - Immunization history:: Adult Immunizations unknown. - Infectious Disease History:: Denies. - Social history:: Smoking status: Patient/guardian denies using tobacco. - Family history:: not pertinent. - Hospitalizations: : No recent hospitalization is reported. ROS: 15:18 Constitutional: Negative for fever, chills, and weight loss, Cardiovascular: Positive rn for chest pain Respiratory: Positive for shortness of breath Abdomen/GI: Negative for abdominal pain, nausea, vomiting, diarrhea, and constipation, MS/Extremity: Negative for injury and deformity, Neuro: Negative for headache, weakness, numbness, tingling, and seizure, Exam: 15:18 Constitutional: This is a well developed, well nourished patient who is awake, alert, rn appears anxious, hyperventilating and diaphoretic, shirt is soaked in sweat Cardiovascular: Tachycardic, irregular Respiratory: Hyperventilating Abdomen/GI: Soft, non-tender Skin: Diaphoretic MS/ Extremity: Pulses equal, no cyanosis. Neurovascular intact. Full, normal range of motion. Equal circumference. Neuro: Awake and alert, GCS 15 Vital Signs: 15:05 Pulse 112; Resp 23; Temp 97.1; Pulse Ox 100% ; jl7 15:08 Weight 76.2 kg; jl7 15:08 BP 143 / 105; jl7 MDM: 14:59 Medical Screening Exam initiated rn 15:07 ED course: Consulted with Dr. Caal, will take to Unit Clerk. Request Roberto and rn heparin.. 15:36 Differential diagnosis: acute myocardial infarction, acute pericarditis, coronary rn artery disease pleurisy, pneumothorax, unstable angina. HEART Score: History: Highly Suspicious (2), ECG: Significant ST-deviation (2), Age: > 45 and < 65 years (1), Risk Factors: 1 or 2 risk factors (1), Troponin: > 1 and < 3 x normal limit (1), Total Score = 7. Data reviewed: vital signs, nurses notes, lab test result(s), EKG, radiologic studies, plain films, and as a result, I will admit patient. Consideration of Admission/Observation Patient was admitted/placed on observation. Escalation of care including admission/observation considered. Counseling: I had a detailed discussion with the patient and/or guardian regarding the historical points, exam findings, and any diagnostic results supporting the discharge/admit diagnosis, lab results, radiology results, the need for further work-up and treatment in the hospital. Response to treatment: the patient's symptoms have mildly improved after treatment, and as a result, I will admit patient. 15:36 ED course: Patient went to Unit Clerk. rn 15:36 ED course: I personally spent 35 minutes engaged in work directly related to the rn individual patient's care. This does not include any time spent performing procedures. The patient has been deemed critically ill because of STEMI presentation of chest pain requiring heparinization and organization of Unit Clerk. 07/11 15:02 Order name: Basic Metabolic Panel; Complete Time: 15:48 rn 07/11 15:02 Order name: CBC with Diff; Complete Time: 15:48 rn 07/11 15:02 Order name: NT PRO-BNP; Complete Time: 15:48 rn 07/11 15:02 Order name: PT-INR; Complete Time: 15:48 rn 07/11 15:02 Order name: Troponin HS; Complete Time: 15:48 rn 07/11 15:43 Order name: RAD; Complete Time: 15:48 EDMS 07/11 15:02 Order name: Cardiac monitoring; Complete Time: 15:32 rn 07/11 15:02 Order name: EKG - Nurse/Tech; Complete Time: 15:32 rn 07/11 15:02 Order name: IV Saline Lock; Complete Time: 15:32 rn 07/11 15:02 Order name: Labs collected and sent; Complete Time: 15:32 rn 07/11 15:02 Order name: O2 Per Protocol; Complete Time: 15:32 rn 07/11 15:02 Order name: O2 Sat Monitoring; Complete Time: 15:32 rn Administered Medications: 15:18 Drug: Brilinta - Ticagrelor PO 180 mg PO once; loading dose Route: PO; ss 15:18 Drug: Heparin ([place]-Bolus with thrombolytic) - HEParin IVP 60 units/kg IVP once; Max 4000 ss units {Co-Signature: hb (Sharon Martin RN).} {Note: 4000 units.} Route: IVP; Site: right antecubital; 15:18 Drug: Heparin ([place] Drip) 12 units/kg/[place] - ([place] [address] units, D5W IV 500 ml) IV at ss calculated rate Per protocol; Max initial rate 1000 units/hr {Co-Signature: hb (Sharon Martin RN).} {Note: 900 units/hr.} Route: IV; Rate: calculated rate; Site: right antecubital; Disposition: 15:36 Critical Care:. rn Disposition Summary: 07/11/24 15:39 Hospitalization Ordered Notes: Hospitalization Status: Inpatient Admission rn Provider: Dre Mendenhall rn Location: Intensive Care Unit rn Condition: Fair rn Problem: new rn Symptoms: have improved rn Bed/Room Type: Standard rn Room Assignment: rn Diagnosis - ST elevation (STEMI) myocardial infarction involving other sites rn Forms: - Medication Reconciliation Form rn - SBAR form rn - Leadership Thank You Letter business development intern time excluding procedures: 15:36 Critical care time: Bedside Care: 30 minutes, Consultation: 5 minutes. Total time: 35 rn minutes Signatures: Dispatcher [employer] EDMS Toi Menchaca MD MD rn Blanchard, Shelby, RN RN Jazmyn Ratliff RN RN [email or web address] Sharon Martin RN Corrections: (The following items were deleted from the chart) 15:03 15:03 Chest Single View+RAD.RAD.BRZ ordered. EDAR EDAR 15:06 15:06 PSHx: None; alexsandra jl7 15:20 15:18 Constitutional: This is a well developed, well nourished patient who is awake, rn alert, appears anxious, hyperventilating and diaphoretic, shirt is soaked in sweat Cardiovascular: Tachycardic, irregular Respiratory: Hyperventilating Abdomen/GI: Soft, non-tender MS/ Extremity: Pulses equal, no cyanosis. Neurovascular intact. Full, normal range of motion. Equal circumference. Neuro: Awake and alert, GCS 15 rn
--- NOTE | 2024-07-11 15:42 | RAD REPORT ---
EXAM: Chest Single View HISTORY: CHEST PAIN COMPARISON: 06/30/2019 FINDINGS: LUNGS/PLEURA: Low lung volumes which accentuates the pulmonary vasculature. Probable basilar atelecta sis. MEDIASTINUM: The mediastinal silhouette is within normal limits. CARDIAC: Low lung volumes accentuates the cardiac silhouette. UPPER ABDOMEN: No significant abnormality. BONES: No acute abnormality. LINES/TUBES/OTHER: N/A IMPRESSION: Low lung volumes and likely basilar atelectasis.
[2024-07-11] MEDS: EPTIFIBATIDE 20 MG/10 ML VIAL IV ONE ×2 (15:59→16:06)
[2024-07-11] MEDS: EPTIFIBATIDE 75 MG/100 ML VIAL IV ONE (15:59)
[2024-07-11] MEDS: EPTIFIBATIDE 75 MG/100 ML VIAL IV SCH (16:06)
--- NOTE | 2024-07-11 16:36 | P.CNS ---
Date of Consult: 07/11/24 Chief Complaint: chest pain History of Present Illness: Patient with no significant PMH presented with sudden onset crushing chest pain with diaphoresis, EKG shown STEMI anterior leads so patient was taken to the flue dust laborer emergently. Allergies Penicillins Allergy (Verified 12/06/20 05:40) Hives Home medications list reviewed: Yes Home Medications: Famotidine [Pepcid AC] 1 tab PO PRN 12/06/20 Multivit,Ther Iron,Ca,FA & Min [Centrum Tablet*] 1 tab PO DAILY 12/06/20 Psyllium Husk [Metamucil] 2 tab PO DAILY 12/06/20 - Past Medical/Surgical History Diabetic: No -: PTSD -: Hernia repair Psychosocial/ Personal History: Unemployed, lives with his mother - Family History dad Medical History: Liver disease - Social History Alcohol use: No CD- Drugs: No Caffeine use: Yes Review of Systems 10-point ROS is otherwise unremarkable Physical Examination General: Alert, In no apparent distress HEENT: Atraumatic, PERRLA, Mucous membr. moist/pink, EOMI, Sclerae nonicteric Neck: Supple, 2+ carotid pulse no bruit, No LAD, Without JVD or thyroid abnormality Respiratory: Clear to auscultation bilaterally, Normal air movement Cardiovascular: Regular rate/rhythm, Normal S1 S2 Gastrointestinal: Normal bowel sounds, No tenderness Musculoskeletal: No tenderness Integumentary: No rashes Neurological: Normal gait, Normal speech, Normal tone, Normal affect Lymphatics: No axilla or inguinal lymphadenopathy Laboratory Data (last 24 hrs) 07/11/24 07/11/24 07/11/24 15:09 15:09 15:09 WBC 12.70 H Hgb 16.3 Hct 50.3 H Plt Count 272 PT 10.2 INR 0.91 Sodium 138 Potassium 4.0 BUN 16 Creatinine 1.31 H Glucose 134 H - Problems (1) STEMI (ST elevation myocardial infarction) Current Visit: Yes Status: Acute Plan: anterior laeds ST elevation. flue dust laborer activated and coronary angiogram shown 100% acute LAD occlusion s/p PCI with Synergy 3.0x48 mm TSERING - ASA 81 mg daily for life. - Brilinta 90 mg po BID for 12 months - Lipitor 40 mg daily - Integrillin drip for 12 hours - repeat CBC in 4 hours - Echo in am
--- NOTE | 2024-07-11 16:45 | P.HP ---
Certification for Inpatient Patient admitted to: Inpatient With expected LOS: >2 Midnights Patient will require the following post-hospital care: None Practitioner: I am a practitioner with admitting privileges, knowledge of patient current condition, hospital course, and medical plan of care. Services: Services provided to patient in accordance with Admission requirements found in Title 42 Section 412.3 of the Code of Federal Regulations Patient History Date of Service: 07/11/24 Reason for admission: STEMI History of Present Illness: 48-year-old otherwise healthy male presents the emergency department with chief complaint of chest pain and shortness of breath. He reports that his symptoms began around 1400 while mowing his yard. Upon arrival to ED EKG was performed which showed STEMI findings. Cardiology was immediately contacted and patient was brought to the Card Clothier. Allergies Penicillins Allergy (Verified 12/06/20 05:40) Hives Home Medications: Famotidine [Pepcid AC] 1 tab PO PRN 12/06/20 Multivit,Ther Iron,Ca,FA & Min [Centrum Tablet*] 1 tab PO DAILY 12/06/20 Psyllium Husk [Metamucil] 2 tab PO DAILY 12/06/20 - Past Medical/Surgical History Diabetic: No -: PTSD -: Hernia repair Psychosocial/ Personal History: Unemployed, lives with his mother - Family History dad -: Liver disease - Social History Alcohol use: No CD- Drugs: No Caffeine use: Yes Place of Residence: Home Review of Systems 10-point ROS is otherwise unremarkable Cardiovascular: Chest Pain Physical Examination - Physical Exam General: Alert, In no apparent distress, Oriented x3 HEENT: Atraumatic, PERRLA, Mucous membr. moist/pink, EOMI Neck: Supple, 2+ carotid pulse no bruit, No LAD Respiratory: Clear to auscultation bilaterally, Normal air movement Cardiovascular: Regular rate/rhythm, Normal S1 S2 Gastrointestinal: Normal bowel sounds, No tenderness Musculoskeletal: No tenderness Integumentary: No rashes Neurological: Normal speech, Normal strength at 5/5 x4 extr - Studies Laboratory Data (last 24 hrs) 07/11/24 07/11/24 07/11/24 15:09 15:09 15:09 WBC 12.70 H Hgb 16.3 Hct 50.3 H Plt Count 272 PT 10.2 INR 0.91 Sodium 138 Potassium 4.0 BUN 16 Creatinine 1.31 H Glucose 134 H Assessment and Plan - Plan Assessment: STEMI Renal insufficiency Plan: STEMI Emergently taken to Card Clothier, stent placed to LAD Admit ICU overnight, monitor on telemetry continue Integrilin drip for 12 hours until 0500 Repeat CBC at 2030 Echo in the morning continue aspirin, statin, Brilinta at DC, will need prescriptions Renal insufficiency Mild, creatinine 1.31 IV fluids overnight, repeat chemistry in the morning DVT PPX: Integrilin drip overnight, then subcu Lovenox Code status: Full Discharge Plan: Home Plan to discharge in: 48 Hours - Advance Directives Does patient have a Living Will: No Does patient have a Durable POA for Healthcare: No - Code Status/Comfort Care Code Status Assessed: Yes (Full code) Critical Care: No Time Spent Managing Pts Care (In Minutes): 70
[2024-07-11] MEDS: NA CHLORIDE 0.9% 1,000 ML IV SCH (18:28)
[2024-07-11] MEDS: MORPHINE 2 MG/ML SYR IV PRN (18:40)
[2024-07-11] MEDS: ONDANSETRON 4 MG/2 ML VIAL IV PRN (18:45)
--- NOTE | 2024-07-11 19:53 | OP ---
Date of Procedure: 07/11/2024 Surgeon: Ta Caal Procedures Performed: 1.Left heart catheterization. 2.Selective coronary angiogram. 3.PCI of the LAD with Synergy 3.0 x 48 mm drug-eluting stent. Indication For Procedure: ST-elevation UT anterior leads. Complications: None. Estimated Blood Loss: Less than 50 cc. Access: Right radial, closed by TR band. Sedation Time: 40 minutes with 2 of Versed and 50 of fentanyl. Description Of Procedure: After risks, and benefits, and alternatives were explained to the patient, patient agreed to proceed with procedure and signed informed consent. The patient was brought back to the labor economist, prepped and draped in sterile fashion. Time-out was performed. Sedation was admini stered. Next, the right radial access was obtained using ultrasound-guided micropuncture technique. An XB LAD guide was advanced over a J-wire to the aortic root. Selective angiogram shows 100% occlu ded LAD. Runthrough wire was passed across the lesions, pre-dilated the lesion with an NC 2.5 mm bal loon. Next, Synergy 3.0 x 48 mm drug-eluting stent was placed across the lesion that was postdilated with an NC 3.5 mm balloon. Heparin was administered during the procedure. ACT was therapeutic. Th e patient was bolused with Integrilin drip. Final angiogram shows MAURICIO-3 flow. The catheter was exc hanged with a JR4 catheter to the RCA with selective angiogram of the right side was done. At the en d of procedure, catheter was removed over a J-wire. Sheath was removed. TR band was applied. Hemos tasis was achieved and the patient was moved back to Recovery in stable condition. Findings: 1.Left main normal. 2.LAD; 100% acute occlusion, status post PCI with Synergy 3.0 x 48 mm drug-eluting stent. There is mid to distal like 50% disease that is followed by mild luminal irregularities. 3.Diagonal 1, jailed by stent, got MAURICIO-2 flow at the end of procedure. 4.Left circ; mild luminal irregularities. 5.RCA; dominant with proximal mild luminal irregularities, mid to distal diffuse 30% to 40% disease, then mild luminal irregularities. 6.LVEDP is 25 mmHg. Assessment And Plan: 1.Anterior STEMI secondary to 100% acute occlusion of the LAD, status post PCI with Synergy 3.0 x 48 mm drug-eluting stent. 2.Moderate mid to distal LAD disease. 3.Moderate mid to distal RCA disease. Plan will be: 1.Aspirin 81 mg daily for life. 2.Brilinta 180 x1 was given in the emergency room, continue Brilinta 90 mg p.o. b.i.d. for 12 months . 3.Integrilin drip and bolus for 12 hours. 4.Continue aggressive medical treatment for CAD. ARMIN/FREDDY Voice ID: [id number] Report ID: [id number]
[2024-07-11 20:27] VITALS: BMI 26.3
[2024-07-11] MEDS: ATORVASTATIN 40 MG TAB PO SCH (21:00)
[2024-07-11 21:13] LABS: Hematocrit 47.4 % (39.6-49.0); Hemoglobin 15.4 g/dL (13.6-17.9); MCH 30.3 pg (27.0-35.0); MCHC 32.5 g/dL (32.0-36.0); MPV 9.3 fL (7.6-11.3); Platelets 246 thou/uL (152-406); Red Cell Distribution Width 13.3 % (12.1-15.2)
[2024-07-11] MEDS: PROMETHAZINE INJ 25 MG/ML AMP IV PRN (21:14)
[2024-07-11] MEDS ORDERED: EPTIFIBATIDE 75 MG/100 ML VIAL IV ONE (22:21)
[2024-07-12 06:11] LABS: Absolute Monocytes 1.6 K/uL (0.1-1.3); Absolute Neutrophil 18.6 K/uL (1.8-8.0); Basophils % 0.2 % (0-1.3); Hematocrit 45.5 % (39.6-49.0); Hemoglobin 15.1 g/dL (13.6-17.9); Lymphocytes % 4.9 % (15.3-44.8); MCH 30.8 pg (27.0-35.0); MCHC 33.1 g/dL (32.0-36.0); MPV 9.4 fL (7.6-11.3); Monocytes % 7.4 % (3.3-12.3); Neutrophils % 87.5 % (41.7-73.7); Nucleated Red Blood Cells % 0.1 % (0-0); Platelets 255 thou/uL (152-406); Red Cell Distribution Width 13.4 % (12.1-15.2)
[2024-07-12 06:38] LABS: Albumin 3.5 g/dL (3.4-5.0); Albumin/Globulin Ratio 0.9 (1.1-1.8); Anion Gap 12.8 mEq/L (5.0-15.0); Bilirubin Total 0.9 mg/dL (0.2-1.0); Globulin 3.8 g/dL (2.3-3.5); Potassium 3.8 mEq/L (3.5-5.1); Protein, Total 7.3 g/dL (6.4-8.2)
[2024-07-12] MEDS: ASPIRIN EC 81 MG TAB PO SCH (07:41)
[2024-07-12] MEDS: TICAGRELOR 90 MG TABLET PO SCH (07:41)
[2024-07-12 10:23] LABS: Blood Morphology Comment NOT SEEN (NOT SEEN); Platelet Estimate ADEQ; White Blood Cell Scan OK (OK)
--- NOTE | 2024-07-12 10:29 | P.PN ---
Subjective Date of Service: 07/12/24 Chief Complaint: STEMI Subjective: No new changes, No C/O voiced, Tolerating diet, Ambulating, Improving Review of Systems 10-point ROS is otherwise unremarkable Physical Examination - Vital Signs Temperature: 97.9 F Blood Pressure: 125/96 Pulse: 115 Respirations: 16 Pulse Ox (%): 94 - Physical Exam General: Alert, In no apparent distress HEENT: Atraumatic, PERRLA, EOMI Neck: Supple, JVD not distended Respiratory: Clear to auscultation bilaterally, Normal air movement Cardiovascular: Regular rate/rhythm, Normal S1 S2 Gastrointestinal: Normal bowel sounds, No tenderness Musculoskeletal: No tenderness Integumentary: No rashes Neurological: Normal speech, Normal tone, Normal affect Lymphatics: No axilla or inguinal lymphadenopathy - Studies Laboratory Data (last 24 hrs) 07/11/24 07/11/24 07/11/24 15:09 15:09 15:09 WBC 12.70 H Hgb 16.3 Hct 50.3 H Plt Count 272 PT 10.2 INR 0.91 Sodium 138 Potassium 4.0 BUN 16 Creatinine 1.31 H Glucose 134 H Medications List Reviewed: Yes Assessment And Plan - Current Problems (Diagnosis) (1) STEMI (ST elevation myocardial infarction) Current Visit: Yes Status: Acute Plan: anterior laeds ST elevation. dental laboratory assistant activated and coronary angiogram shown 100% acute LAD occlusion s/p PCI with Synergy 3.0x48 mm TSERING - ASA 81 mg daily for life. - stop Brilinta due to finicial issues, load with Plavix 600 mg po x1 then continue 75 mg daily - start lopressor 25 mg po BID - start lisinopril 2.5 mg daily - Lipitor 40 mg daily
[2024-07-12] MEDS: CLOPIDOGREL 75 MG TABLET PO ONE (11:01)
[2024-07-12] MEDS: METOPROLOL TAR 25 MG TAB PO ONE (11:02)
[2024-07-12 12:05] VITALS: O2SAT 97
--- NOTE | 2024-07-12 12:29 | P.DS ---
Admission Date: 07/11/24 Discharge Date: 07/04/25 Disposition: ROUTINE DISCHARGE Discharge Condition: FAIR Reason for Admission: STEMI Brief History of Present Illness: 48-year-old otherwise healthy male presents the emergency department with chief complaint of chest pain and shortness of breath. He reports that his symptoms began around 1400 while mowing his yard. Upon arrival to ED EKG was performed which showed STEMI findings. Cardiology was immediately contacted and patient was brought to the Case Resource Manager. - Physical Exam General: Alert, In no apparent distress, Oriented x3 HEENT: Atraumatic, PERRLA, Mucous membr. moist/pink, EOMI Neck: Supple, 2+ carotid pulse no bruit, No LAD Respiratory: Clear to auscultation bilaterally, Normal air movement Cardiovascular: Regular rate/rhythm, Normal S1 S2 Gastrointestinal: Normal bowel sounds, No tenderness Musculoskeletal: No tenderness Integumentary: No rashes Neurological: Normal speech, Normal strength at 5/5 x4 extr Hospital Course: 48-year-old otherwise healthy male presents the emergency department with chief complaint of chest pain and shortness of breath. He reports that his symptoms began around 1400 while mowing his yard. Upon arrival to ED EKG was performed which showed STEMI findings. Cardiology was immediately contacted and patient was brought to the Case Resource Manager. Tolerating diet, stable to discharge, follow-up with cardiology outpatient Assessment STEMI, was emergently taken to the Case Resource Manager, stent placed to the LAD, discharged on aspirin, statin, Brilinta, metoprolol, follow-up with cardiology outpatient Renal insufficiency improved with IV fluids 07/11 cardiac cath, anterior STEMI, LAD, 100% occlusion, PCI drug-eluting stent, right RCA 30 to 40% blockage, mild to moderate disease in the LAD, RCA, treated with Integrilin drip for 12 hours in ICU prior to discharge. Chest x-ray, low lung volumes, likely basilar atelectasis Continue home medicines as previously prescribed GOAL: Clear understanding of disease process INSTRUCTIONS: Physician Discharge Instructions: -Follow-up with cardiology after discharge -Follow-up with PCP in 1 to 2 weeks -Please call if any questions regarding hospital stay -Please call nursing station at [phone] if any nursing or medication questions -Return to the emergency room if symptoms worsen Diet: ADA, low sodium Activity: Fall precautions Vital Signs/Physical Exam: Temp Pulse Resp BP Pulse Ox 98.2 F 102 H 23 H 132/96 H 95 07/12/24 12:00 07/12/24 12:00 07/12/24 12:00 07/12/24 12:00 07/12/24 12:00 Laboratory Data at Discharge: WBC 21.30 thou/uL (4.3-10.9) H 07/12/24 05:13 Hgb 15.1 g/dL (13.6-17.9) 07/12/24 05:13 Hct 45.5 % (39.6-49.0) 07/12/24 05:13 Plt Count 255 thou/uL (152-406) 07/12/24 05:13 PT 10.2 SECONDS (9.4-12.5) 07/11/24 15:09 INR 0.91 07/11/24 15:09 Sodium 137 mEq/L (136-145) 07/12/24 05:13 Potassium 3.8 mEq/L (3.5-5.1) 07/12/24 05:13 BUN 15 mg/dL (7-18) 07/12/24 05:13 Creatinine 0.91 mg/dL (0.70-1.30) 07/12/24 05:13 Glucose 129 mg/dL (74-106) H 07/12/24 05:13 Total Bilirubin 0.9 mg/dL (0.2-1.0) 07/12/24 05:13 AST 887 U/L (15-37) H 07/12/24 05:13 ALT 188 U/L (16-61) H 07/12/24 05:13 Alkaline Phosphatase 80 U/L (45-117) 07/12/24 05:13 Triglycerides 113 mg/dL (<150) 07/12/24 05:13 Cholesterol 264 mg/dL (<200) H 07/12/24 05:13 HDL Cholesterol 51 mg/dL (40-60) 07/12/24 05:13 Cholesterol/HDL Ratio 5.18 07/12/24 05:13 Home Medications: Famotidine [Pepcid AC] 1 tab PO PRN 12/06/20 Multivit,Ther Iron,Ca,FA & Min [Centrum Tablet*] 1 tab PO DAILY 12/06/20 Psyllium Husk [Metamucil] 2 tab PO DAILY 12/06/20 Aspirin Chewable [Aspirin Chewable*] 81 mg PO DAILY 30 Days #30 tab.chew 07/12/24 Atorvastatin Calcium [Lipitor] 40 mg PO BEDTIME 30 Days #30 tab 07/12/24 Clopidogrel Bisulfate [Plavix*] 75 mg PO DAILY 30 Days #30 tab 07/12/24 Metoprolol Tartrate [Lopressor*] 25 mg PO BID 6AM 6PM 30 Days #60 tab 07/12/24 lisinopriL [Prinivil*] 2.5 mg PO DAILY 30 Days #30 tab 07/12/24 New Medications: Aspirin Chewable [Aspirin Chewable*] 81 mg PO DAILY 30 Days #30 tab.chew Atorvastatin Calcium [Lipitor] 40 mg PO BEDTIME 30 Days #30 tab Metoprolol Tartrate [Lopressor*] 25 mg PO BID 6AM 6PM 30 Days #60 tab Clopidogrel Bisulfate [Plavix*] 75 mg PO DAILY 30 Days #30 tab lisinopriL [Prinivil*] 2.5 mg PO DAILY 30 Days #30 tab Physician Discharge Instructions: PROBLEM: myocardial infarction GOAL: Clear understanding of disease process INSTRUCTIONS: Diet: Low sodium Activity: Fall precautions DME DME: Date Ordered: Name of Company: [employer] Services Needed: None Name of Company: Date or Referral: IMMUNIZATION Influenza Vaccine Indicated: No Influenza Vaccine Given: Date Given: Pneumonia Vaccine Indicated: No Pneumonia Vaccine Given: Date Given: 48-year-old otherwise healthy male presents the emergency department with chief complaint of chest pain and shortness of breath. He reports that his symptoms began around 1400 while mowing his yard. Upon arrival to ED EKG was performed which showed STEMI findings. Cardiology was immediately contacted and patient was brought to the Case Resource Manager. Tolerating diet, stable to discharge, follow-up with cardiology outpatient call office for apt Assessment STEMI, was emergently taken to the Case Resource Manager, stent placed to the LAD, discharged on aspirin, statin, Brilinta, metoprolol, follow-up with cardiology outpatient (take blood pressure log to cardiology appointment) Renal insufficiency improved with IV fluids 07/11 cardiac cath, anterior STEMI, LAD, 100% occlusion, PCI drug-eluting stent, right RCA 30 to 40% blockage, mild to moderate disease in the LAD, RCA, treated with Integrilin drip for 12 hours in ICU prior to discharge. Chest x-ray, low lung volumes, likely basilar atelectasis Continue home medicines as previously prescribed Weigh yourself daily, if increase in weight noted, contact cardiology office for earlier appointment GOAL: Clear understanding of disease process INSTRUCTIONS: Physician Discharge Instructions: -Follow-up with cardiology after discharge -Follow-up with PCP in 1 to 2 weeks -Please call if any questions regarding hospital stay -Please call nursing station at [phone] if any nursing or medication questions -Return to the emergency room if symptoms worsen Diet: ADA, low sodium Activity: Fall precautions Followup: Ta Caal MD [ACTIVE - CAN ADMIT] - [facility] [Primary Care Provider] - Time spent managing pt's care (in minutes): 45
[2024-07-12] MEDS ORDERED: TICAGRELOR 90 MG TABLET PO SCH (12:34)
--- NOTE | 2024-07-12 14:04 | ECHO ---
HEIGHT: 5 ft 7 in WEIGHT: 168 lb 0 oz DATE OF STUDY: 07/12/[address]: Jose Lockett NP 2-DIMENSIONAL: YES M.MODE: YES DOPPLER: YES COLOR FLOW: YES TDS: NO PORTABLE: YES DEFINITY: NO BUBBLE STUDY: NO DIAGNOSIS: STATUS POST STEMI CARDIAC HISTORY: CATHERIZATION: SURGERY: PROSTHETIC VALVE: PACEMAKER: MEASUREMENTS (cm) DIASTOLIC (NORMALS) SYSTOLIC (NORMALS) IVSd 1.2 (0.6-1.2) LA Diam 3.2 (1.9-4.0) LVEF 37% LVIDd 4.7 (3.5-5.7) LVIDs 3.8 (2.0-3.5) %FS 18% LVPWd 1.2 (0.6-1.2) Ao Diam 2.7 (2.0-3.7) 2 DIMENSIONAL ASSESSMENT: RIGHT ATRIUM: NORMAL LEFT ATRIUM: NORMAL RIGHT VENTRICLE: NORMAL LEFT VENTRICLE: NORMAL TRICUSPID VALVE: SIGNIFICANT TRICUSPID REGURGITATION MITRAL VALVE: NORMAL PULMONIC VALVE: NORMAL AORTIC VALVE: NORMAL PERICARDIAL EFFUSION: NONE AORTIC ROOT: NORMAL LEFT VENTRICULAR WALL MOTION: MID TO DISTAL ANTEROSEPTAL, APICAL SEVERE HYPOKINESIS. DOPPLER/COLOR FLOW: NORMAL. COMMENTS: 1. MODERATELY REDUCED LEFT VENTRICULAR SYSTOLIC FUNCTION, EJECTION FRACTION 35-40%. MID TO DISTAL ANTEROSEPTAL, ANTERIOR AND APICAL SEVERE HYPOKINESIS. TECHNOLOGIST: ZAK PAUL
[2024-07-12 16:46] VITALS: TEMP 97.1
[2024-07-12] MEDS: METOPROLOL TAR 25 MG TAB PO SCH (17:10)
[2024-07-12 17:11] VITALS: BP 119/94
[2024-07-13] MEDS ORDERED: CLOPIDOGREL 75 MG TABLET PO SCH (09:00)
--- NOTE | 2024-07-14 12:12 | EKG ---
Test Date: 2024-07-11 Test Time: 14:57:23 Principal Technologist: MONICA MEASUREMENT RESULTS: Intervals: Rate: 105 WV: 120 QRSD: 80 QT: 344 QTc: 454 [place]: P: 74 WV: 120 QRS: 46 T: 47 INTERPRETIVE STATEMENTS: Sinus tachycardia with frequent premature ventricular complexes in a pattern of bigeminy Anteroseptal infarct, possibly acute ACUTE ND Abnormal ECG Compared to ECG 06/30/2019 10:40:19 Ventricular premature complex(es) now present Myocardial infarct finding now present Sinus rhythm no longer present Sinus arrhythmia no longer present Left ventricular hypertrophy no longer present Electronically Signed On 07-14-24 12:10:45 SYSTEM TRAINER by Ta Caal
--- NOTE | 2024-07-14 12:12 | EKG ---
Test Date: 2024-07-11 Test Time: 15:00:06 Dance Coach: MONICA MEASUREMENT RESULTS: Intervals: Rate: 108 MN: 124 QRSD: 78 QT: 340 QTc: 455 [place]: P: 84 MN: 124 QRS: 52 T: 51 INTERPRETIVE STATEMENTS: Sinus tachycardia with frequent premature ventricular complexes Anteroseptal infarct, possibly acute ACUTE ID Abnormal ECG Compared to ECG 07/11/2024 14:57:23 No significant changes Electronically Signed On 07-14-24 12:10:41 BUILDING ENERGY RETROFIT TECHNICIAN by aT Caal
--- NOTE | 2024-07-15 12:49 | EKG ---
Test Date: 2024-07-12 Test Time: 10:11:29 Commodities Trader: MATTHEW MEASUREMENT RESULTS: Intervals: Rate: 95 DE: 118 QRSD: 80 QT: 340 QTc: 427 [place]: P: 67 DE: 118 QRS: 68 T: 49 INTERPRETIVE STATEMENTS: Normal sinus rhythm Anteroseptal infarct, possibly acute ACUTE [place] Abnormal ECG Compared to ECG 07/11/2024 21:28:01 No significant changes Electronically Signed On 07-15-24 12:48:05 BLASTING COAL MINER by Ta Caal
--- NOTE | 2024-07-15 12:51 | EKG ---
Test Date: 2024-07-11 Test Time: 21:27:28 Credit Review Officer: MCGA MEASUREMENT RESULTS: Intervals: Rate: 111 MA: 136 QRSD: 82 QT: 326 QTc: 443 [place]: P: -84 MA: 136 QRS: 76 T: 25 INTERPRETIVE STATEMENTS: Unusual P axis and short MA, probable junctional tachycardia Anteroseptal infarct, possibly acute Lateral injury pattern ACUTE PR Abnormal ECG Compared to ECG 07/11/2024 15:00:06 Sinus tachycardia no longer present Ventricular premature complex(es) no longer present Myocardial infarct finding still present Electronically Signed On 07-15-24 12:49:09 HORTICULTURAL FARMER by Ta Caal
--- NOTE | 2024-07-15 12:51 | EKG ---
Test Date: 2024-07-11 Test Time: 21:28:01 Mixing House Operator: NENAA MEASUREMENT RESULTS: Intervals: Rate: 112 NE: 136 QRSD: 82 QT: 326 QTc: 444 [place]: P: -82 NE: 136 QRS: 76 T: 20 INTERPRETIVE STATEMENTS: Unusual P axis and short NE, probable junctional tachycardia Anteroseptal infarct, possibly acute Lateral injury pattern ACUTE ND Abnormal ECG Compared to ECG 07/11/2024 15:00:06 Sinus tachycardia no longer present Ventricular premature complex(es) no longer present Myocardial infarct finding still present Electronically Signed On 07-15-24 12:49:07 FACING BASTER JUMPBASTING by Ta Caal
== END 2024-07-12 18:50 | disposition home or self-care (01) | DRG 322 ==
LOC: ER 14:40 → ERHOLD 15:34 → 3RD-ICU 17:53
PROVIDERS: ADMIT Internal Medicine; ATTEND Hospitalist
PROC: 027034Z Dilation of Coronary Artery, One Artery with Drug-eluting Intraluminal Device, Percutaneous Approach (ICD-10-PCS; principal; 2024-07-11)
PROC: 4A023N7 Measurement of Cardiac Sampling and Pressure, Left Heart, Percutaneous Approach (ICD-10-PCS; 2024-07-11)
PROC: B2111ZZ Fluoroscopy of Multiple Coronary Arteries using Low Osmolar Contrast (ICD-10-PCS; 2024-07-11)
DX: I21.09 ST elevation (STEMI) myocardial infarction involving other coronary artery of anterior wall (principal); N28.9 Disorder of kidney and ureter, unspecified; Z88.0 Allergy status to penicillin; Z56.0 Unemployment, unspecified; Z79.82 Long term (current) use of aspirin; Z79.02 Long term (current) use of antithrombotics/antiplatelets; Z79.899 Other long term (current) drug therapy
CPT/HCPCS: 36415; 71045; 76937; 80048; 80053; 80061; 82947; 83880; 84484; 85025; 85027; 85347; 85610; 92941; 93005; 93306; 93458; 96374; 99152; 99153; 99285; C1725; C1877; C1893; J0461; J1327; J1644; J2003; J2250; J2270; J2405; J2550; J3010; J7030; J7040; Q9967